=== PATIENT | male | born 1965 | race Caucasian/White ===

== ENCOUNTER 2016-06-03 10:49 | Emergency (ER) | payer OTHER ==
[2016-06-03] MEDS ORDERED: HYDROcod/ACETAM 5/325 MG TABLET PO STA (12:21)
[2016-06-03] MEDS ORDERED: HYDROcod/ACETAM 5/325 MG TABLET ONE (12:26)
== END 2016-06-03 12:42 | disposition home or self-care (01) ==
DX: S92.124A Nondisplaced fracture of body of right talus, initial encounter for closed fracture (principal); W17.89XA Other fall from one level to another, initial encounter; Y92.008 Other place in unspecified non-institutional (private) residence as the place of occurrence of the external cause; R03.0 Elevated blood-pressure reading, without diagnosis of hypertension
CPT/HCPCS: 29515; 73610; 73630; 99283; A9270

== ENCOUNTER 2023-08-10 09:04 | Emergency (ER) | payer OTHER ==
--- NOTE | 2023-08-10 09:50 | XRAY Report ---
PROCEDURE: Chest 1V INDICATIONS: Chest pain TECHNIQUE: One view of the chest was acquired. COMPARISON: None. FINDINGS: Surgical changes and devices: Cholecystectomy clips. Lungs and pleura: No pleural effusions or pneumothorax. Minimal patchy bibasilar atelectasis. Mediastinum: Mediastinal contours appear normal. Heart size is normal. Bones and chest wall: No suspicious bony lesions. Overlying soft tissues appear unremarkable. IMPRESSION: Minimal patchy bibasilar atelectasis. Reviewed by: Conor Purcell MD on 08/10/2023 9:49 AM PDT Approved by: Conor Purcell MD on 08/10/2023 9:49 AM PDT Station ID: [id number]
[2023-08-10 09:55] LABS: BASOPHILS # (AUTO) 0.1 10^3/uL (0.0-0.1); BASOPHILS % (AUTO) 0.9 %; EOSINOPHILS # (AUTO) 0.4 10^3/uL (0.0-0.7); EOSINOPHILS % (AUTO) 3.5 %; HCT - HEMATOCRIT 47.2 % (42.0-52.0); HGB - HEMOGLOBIN 16.4 g/dL (14.0-18.0); LYMPHOCYTES # (AUTO) 2.4 10^3/uL (1.5-3.5); LYMPHOCYTES % (AUTO) 23.3 %; MEAN CORPUSCULAR HEMOGLOBIN 30.7 pg (27.0-31.0); MEAN CORPUSCULAR HGB CONC 34.7 g/dL (32.0-36.0); MEAN CORPUSCULAR VOLUME 88.2 fL (80.0-94.0); MEAN PLATELET VOLUME 9.6 fL (7.4-11.4); MONOCYTES # (AUTO) 0.9 10^3/uL (0.0-1.0); MONOCYTES % (AUTO) 9.1 %; NEUTROPHILS # (AUTO) 6.3 10^3/uL (1.5-6.6); NEUTROPHILS % (AUTO) 62.5 %; PLT - PLATELET COUNT 270 10^3/uL (130-450); RED BLOOD COUNT 5.35 10^6/uL (4.70-6.10); RED CELL DISTRIBUTION WIDTH 12.3 % (12.0-15.0); WHITE BLOOD COUNT 10.1 x10^3/uL (4.8-10.8)
[2023-08-10 10:10] LABS: ALBUMIN 4.3 g/dL (3.2-5.5); ALBUMIN/GLOBULIN RATIO 1.4 (1.0-2.2); BILIRUBIN,TOTAL 0.6 mg/dL (0.2-1.0); CALCIUM 9.4 mg/dL (8.5-10.3); POTASSIUM 3.7 mmol/L (3.5-4.5); TOTAL PROTEIN 7.3 g/dL (6.4-8.9)
[2023-08-10 10:16] LABS: TROPONIN I HIGH SENSITIVITY 4.5 ng/L (2.3-19.7)
[2023-08-10] MEDS: lisinopriL 5 MG TABLET PO STA (12:40)
[2023-08-10] MEDS: METOPROLOL TARTRATE 50 MG TABLET PO STA (12:40)
--- NOTE | 2023-08-10 13:38 | CT Report ---
PROCEDURE: Head WO INDICATIONS: high blood pressure, visual change TECHNIQUE: Noncontrast 4.5 mm thick angled axial sections acquired from the foramen magnum to the vertex. For r adiation dose reduction, the following was used: automated exposure control, adjustment of mA and/or kV according to patient size. COMPARISON: None. FINDINGS: Image quality: Excellent. CSF spaces: Basal cisterns are patent. No extra-axial fluid collections. Ventricles are normal in size and shape. Brain: No midline shift. No intracranial masses or hemorrhage. Grimes-white matter interface is norm al. Skull and face: Calvarium and visualized facial bones are intact, without suspicious lesions. Sinuses: Visualized sinuses and mastoids are clear. IMPRESSION: No acute intracranial pathology. Reviewed by: Palak Vazquez MD on 08/10/2023 1:36 PM PDT Approved by: Palak Vazquez MD on 08/10/2023 1:36 PM PDT Station ID: [id number]
--- NOTE | 2023-08-10 14:13 | ED Physician Documentation ---
History of Present Illness - Stated complaint Stated Complaint: HIGH BP/HEAD TIGHT - Chief complaint Chief Complaint: General - History obtained from History obtained from: Patient - Additonal information Additional information: The patient comes to the emergency department chief complaint of high blood pressure, posterior head and neck tightness, and intermittent trouble focusing his eyes. He states its all been going on for about the past week. He states he has not been to the doctor in a long time but that he goes to the dentist once a year and thinks his last prior blood pressure was then. However, he also went to the dentist last week and when they took his blood pressure, he states that it was quite high and they told him so. The patient states that he also measured at home today and it was running in the 200s systolic. Patient denies any chest pain or shortness of breath. No other neurologic symptoms. He has been making urine and is unaware of any other medical problems or any kidney issues. The patient states that the trouble focusing his eyes is mainly when he tries to read and that it's intermittent. No other complaints at this time. PD PAST MEDICAL HISTORY - Past Medical History Past Medical History: Yes Cardiovascular: None Respiratory: None Endocrine/Autoimmune: None GI: None : None HEENT: None Psych: Panic attacks, Post traumatic stress disorder, Claustrophobia Musculoskeletal: None Derm: None - Past Surgical History Past Surgical History: Yes General: Appendectomy - Present Medications Home Medications: Ambulatory Orders Medication Instructions Recorded Confirmed Metoprolol Tartrate 75 mg PO BID #120 tablet 08/10/23 - Allergies Allergies/Adverse Reactions: Allergies Allergy/AdvReac Type Severity Reaction Status Date / Time No Known Drug Allergies Allergy Verified 08/10/23 09:16 - Social History Does the pt smoke?: No Smoking Status: Never smoker Does the pt drink ETOH?: No Does the pt have substance abuse?: No - Immunizations Immunizations: TDAP >10years/unknown - POLST Patient has POLST: No PD ED PE NORMAL - Vitals Vital signs reviewed: Yes - General General: Alert and oriented X 3, No acute distress, Well developed/nourished, Other (Well-appearing) - HEENT HEENT: Atraumatic, PERRL, EOMI, Moist mucous membranes - Neck Neck: Supple, no meningeal sign, Other (Some tenderness to palpation over posterior musculature of neck) - Cardiac Cardiac: RRR, No murmur - Respiratory Respiratory: No respiratory distress, Clear bilaterally - Abdomen Abdomen: Soft, Non tender, Non distended - Derm Derm: Warm and dry - Extremities Extremities: No deformity - Neuro Neuro: Alert and oriented X 3 - Psych Psych: Normal mood, Normal affect Results - Vitals Vitals: Oxygen O2 Source Room air - EKG (time done) 0922 EKG releavant findings:: EKG personally interpreted by author of this note. Relevant findings are: Rate: Rate (enter#) (87) Rhythm: NSR Kaplan: Normal Intervals: Normal SD QRS: Normal Ischemia: Normal ST segments Compare to prior EKG: Old EKG unavailable Computer interpretation: Agree with computer - Labs Labs: Laboratory Tests 08/10/23 08/10/23 09:51 09:51 WBC 10.1 RBC 5.35 Hgb 16.4 Hct 47.2 MCV 88.2 MCH 30.7 MCHC 34.7 RDW 12.3 Plt Count 270 MPV 9.6 Neut # (Auto) 6.3 Lymph # (Auto) 2.4 [place] # (Auto) 0.9 Eos # (Auto) 0.4 Baso # (Auto) 0.1 Absolute Nucleated RBC 0.00 Nucleated RBC % 0.0 Sodium 138 Potassium 3.7 Chloride 103 Carbon Dioxide 30 Anion Gap 5.0 L BUN 13 Creatinine 1.0 Estimated GFR (MDRD) 77 L Glucose 121 H Calcium 9.4 Total Bilirubin 0.6 AST 19 ALT 30 Alkaline Phosphatase 57 Troponin I High Sens 4.5 Total Protein 7.3 Albumin 4.3 Globulin 3.0 Albumin/Globulin Ratio 1.4 Lipase 24 - Rads (name of study) head CT Relevant Findings:: Final report received, See rad report (Negative) Chest x-ray Relevant Findings:: Final report received, See rad report (Negative) PD Medical Decision Making - ED course Complexity details: reviewed results, re-evaluated patient, considered differential, d/w patient ED course: The patient was worked up with labs, CT, and EKG, all of which looked good. He was given metoprolol 50 mg in the emergency department as well as lisinopril 20 mg. This did initially bring his blood pressure down somewhat, And symptoms did resolve. However, his blood pressure did up to prior levels without onset of any further symptoms or recurrence of the symptoms patient had upon arrival. The patient was given a dose of long-acting metoprolol 50 mg. I discussed with him that we will need to start antihypertensives but that it will most likely take some time for them to be completely effective. I have emphasized to the patient the importance of getting into see primary care as soon as possible and I have given him a 2-month supply of his antihypertensives. We have discussed that should the patient have onset of chest pain, shortness of breath, severe headache, or strokelike symptoms he should return to the emergency department immediately. Departure - Departure Disposition: Home, Self Care Clinical Impression: Uncontrolled hypertension Condition: Stable Instructions: ED Hypertension Conf Out Of Control Prescriptions: Metoprolol Tartrate 75 mg PO BID #120 tablet Comments: Your CT scan and blood work look good. Your EKG is normal. Most likely, your blood pressure has been running at least somewhat high for a while but has been higher over the last week, causing your symptoms. It is really important to get your blood pressure under control to prevent serious consequences such as heart attack and stroke. You have been given a couple of doses of blood pressure medicine here in the emergency department and a prescription for this plus aspirin has been electronically transmitted to the [facility] pharmacy in [place]. 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 Please call to make the next available appointment with primary care. The clinic that is on duty for ER follow-ups for our current period of time is the [facility]. The number there is [phone]. Please give them a call this afternoon to get an appointment set up for follow-up. Be sure to let them know you are in the emergency department for [id number] blood pressure and headache and vision changes. If you begin to have any more concerning symptoms such as chest pain, shortness of breath, or strokes symptoms like inability to use an arm or leg or difficulty speaking or swallowing, please return to the emergency department without delay. Forms: PCP List Discharge Date/Time: 08/10/23 14:25
[2023-08-10] MEDS: METOPROLOL SUCCINATE 50 MG TABLET PO STA (14:16)
[2023-08-10 14:34] VITALS: BP 205/112; O2SAT 98
== END 2023-08-10 14:25 | disposition home or self-care (01) ==
LOC: ED 09:04
DX: I10 Essential (primary) hypertension (principal); H53.9 Unspecified visual disturbance; F43.10 Post-traumatic stress disorder, unspecified
CPT/HCPCS: 36415; 70450; 71045; 80053; 83690; 84484; 85025; 93005; 99284; A9270